=== PATIENT | male | born 1995 | race Two or more races ===

== ENCOUNTER 2016-10-09 21:31 | Emergency (ER) | payer SELFPAY ==
--- NOTE | ~2016-10-09 | CR63 ---
[facility]. [facility] A Service of [facility] & [facility] / [facility] RADIOLOGY TEXT RESULTS PATIENT: KRYSTAL MAURICIO JR LOCATION: SED : [birth year] UNIT #: [id number] AGE: [address]: Rachel Quan APRN SEX: M ORDER DR: [id number] [address] [address] [id number] E MR#: [id number] Acc #: [id number] NAME: KRYSTAL MAURICIO JR : 1995 SEX: M STUDY DATE/TIME: 10/09/2016 21:43 UNIT: SED ROOM: STUDY DESCRIPTION: CR Chest 2 View Attending Physician: Rachel Quan A.P.R.N. Ordering Physician: Rachel Rhodes A.P.R.N. Primary Care Physician: No Primary Care Physician MEDICAL IMAGING REPORT This report is preliminary unless electronic signature is present. EXAM 2-views chest. HISTORY Cough and shortness of air, 4 days onset. Chronic cough and short of air. Smoker. FINDINGS PA and lateral radiographs the chest are presented without prior films for comparison. The bony structures are unremarkable. The heart and mediastinum normal in size and contour. The lungs are well inflated. There is no evidence of acute infectious or inflammatory disease, pleural effusion or pneumothorax. No suspicious nodule. Dictated by... Angelo Dunham M.D. THIS IS AN ELECTRONICALLY VERIFIED REPORT Angelo Dunham M.D. at 10/10/2016 10:44 PM JESSICA/wilbert TD: 10/09/2016 23:28 JOB #: [id number] MEDICAL IMAGING REPORT Page 1 of 1
[~2016-10-09 21:31] MED LIST: NO MEDICATIONS
== END 2016-10-09 22:22 | disposition home or self-care (01) ==
LOC: SED 21:31
DX: J20.9 Acute bronchitis, unspecified (principal); F17.210 Nicotine dependence, cigarettes, uncomplicated
CPT/HCPCS: 71020; 94640; 99284